=== PATIENT | male | born 1990 | race Two or more races ===

== ENCOUNTER 2017-06-08 19:04 | Emergency (ER) | payer MEDICAID ==
[~2017-06-08] VITALS: Ht 177.8 cm; Wt 93.0 kg
[2017-06-08] MEDS ORDERED: METOPROLOL SUCC25 MG ORAL (19:19)
[2017-06-08] MEDS ORDERED: OMEPRAZOLE20 M2 ORAL (19:19)
[2017-06-08] MEDS ORDERED: GABAPENTIN800 MG ORAL (19:19)
[2017-06-08] MEDS ORDERED: HYDROcodone/Acetamin 7.5/325 tab ORAL ONE (19:45)
[2017-06-08] MEDS ORDERED: Levalbuterol Inh UD 1.25mg/0.5ml HHN ONE (19:45)
[2017-06-08 20:22] LABS: BASOPHILS % (AUTO) 0.9 % (0.0-2.0); EOSINOPHILS % (AUTO) 5.4 % (0.0-3.0); HEMATOCRIT 42.1 % (42.0-52.0); LYMPHOCYTES % (AUTO) 31.1 % (20.0-45.0); MEAN CORPUSCULAR VOLUME 88 FL (80-99); MONOCYTES % (AUTO) 6.8 % (1.0-10.0); NEUTROPHILS % (AUTO) 55.9 % (45.0-75.0); PLATELET COUNT 371 K/UL (150-450); RED BLOOD COUNT 4.78 M/UL (4.70-6.10); RED CELL DISTRIBUTION WIDTH 12.7 % (11.6-14.8); WHITE BLOOD COUNT 9.3 K/UL (4.8-10.8)
[2017-06-08 20:31] LABS: ANION GAP 5 mmol/L (5-15); BLOOD UREA NITROGEN 9 mg/dL (7-18); CALCIUM 8.9 MG/DL (8.5-10.1); CARBON DIOXIDE 30 MMOL/L (21-32); CHLORIDE 104 MMOL/L (98-107); CREATININE 0.9 MG/DL (0.55-1.30); POTASSIUM 4.1 MMOL/L (3.5-5.1); SODIUM 139 MMOL/L (136-145)
[2017-06-08 20:35] LABS: ALANINE AMINOTRANSFERASE 98 U/L (12-78); ALBUMIN 3.6 G/DL (3.4-5.0); ALKALINE PHOSPHATASE 114 U/L (46-116); ASPARTATE AMINO TRANSFERASE 44 U/L (15-37); BILIRUBIN,TOTAL 0.2 MG/DL (0.2-1.0); CREATINE KINASE 255 U/L (26-308)
--- NOTE | 2017-06-08 21:12 | Emergency Room Report ---
History of Present Illness General Chief Complaint: Chest Pain Source: Patient Present Illness HPI 26-year-old male presents to the emergency department complaining of 7 on a 10 in severity chest pain and back pain since last night. Pt. also reports hx of chronic back pain and is experiencing symptoms consistent with prior symptoms. Reports wheezing and intermittent coughing. Denies fevers, chills, abdominal pain, nausea/vomiting. denies trauma or fall. Reports taking metoprolol for "hear rhythm" [place] Denies hx of [place] or CHF. denies lower extremity edema/swelling. Denies Palpitations, LOC, AMS, dizziness, Changes in Vision, Sensation, paresthesias, or a sudden severe headache. Allergies: Coded Allergies: IBUPROFEN (Verified Allergy, Mild, 06/08/17) PENICILLINS (Verified Allergy, Mild, 06/08/17) SULFA (SULFONAMIDE ANTIBIOTICS) (Verified Allergy, Mild, 06/08/17) TRAMADOL (Verified Allergy, Unknown, 06/08/17) Patient History Past Medical History: see triage record Past Surgical History: none Pertinent Family History: none Immunizations: UTD Reviewed Nursing Documentation: PMH: Agreed, PSxH: Agreed Nursing Documentation-PMH Hx Cardiac Problems: Yes Hx Gastrointestinal Problems: Yes - acid reflux Review of Systems All Other Systems: negative except mentioned in HPI Physical Exam Vital Signs Date Time Temp Pulse Resp B/P (MAP) Pulse Ox O2 Delivery O2 Flow Rate FiO2 06/08/17 19:10 98.1 108 15 134/82 95 Room Air 98.1 06/08/17 19:55 21 Sp02 EP Interpretation: reviewed, normal General Appearance: no apparent distress, alert, GCS 15, non-toxic Head: normocephalic, atraumatic Eyes: bilateral eye normal inspection, bilateral eye PERRL ENT: hearing grossly normal, normal voice Neck: full range of motion Respiratory: chest non-tender, speaking full sentences, wheezing Cardiovascular #1: regular rate, rhythm, no edema Gastrointestinal: normal bowel sounds, non tender, soft Rectal: deferred Genitourinary: normal inspection Musculoskeletal: back normal, gait/station normal, normal range of motion, non- tender Neurologic: alert, oriented x3, responsive, motor strength/tone normal, sensory intact, speech normal, grossly normal Psychiatric: judgement/insight normal Skin: normal color, no rash, warm/dry, well hydrated Lymphatic: no adenopathy Medical Decision Making PA Attestation Dr. Patel is my supervising Physician whom patient management has been discussed with. Diagnostic Impression: Primary Impression: Nonspecific chest pain Additional Impression: History of chronic back pain ER Course 26-year-old male presents to the emergency department complaining of 7 on a 10 in severity chest pain and back pain since last night. Pt. also reports hx of chronic back pain and is experiencing symptoms consistent with prior symptoms. Reports wheezing and intermittent coughing. Denies fevers, chills, abdominal pain, nausea/vomiting. denies trauma or fall. Reports taking metoprolol for "hear rhythm" [place]. Denies hx of TX or CHF. denies lower extremity edema/swelling. Denies Palpitations, LOC, AMS, dizziness, Changes in Vision, Sensation, paresthesias, or a sudden severe headache. Ddx considered but are not limited to TX, pneumonia, contusion, costochondritis , PE, ACS, Shoulder strain, Chest wall contusion. aortic dissection, arrhythmia. Vital signs: are WNL, pt. is afebrile H&PE are most consistent with nonspecific CP with abnormal EKG. -Hx of "cardiac rhythm " takes Metoprolol dx'd last year in [place] was seeing a Family Readiness Support Assistant. ORDERS: - EK BPM sinus tach with evidence of Jmfok-Eqagbmroh-Jtziz - no acute ST changes reviewed by Dr. Patel, this interpretation was scribed by FERDINAND Solis -CBC: unremarkable -CMP: unremarkable -Troponins: Negative 0.00 CXR: Unremarkable ED INTERVENTIONS: - PT. placed on cardiac monitoring. - Xopenex Nebs given- reassessment wheezes have resolved bilaterally DISCHARGE: At this time pt. is stable for d/c with close outpatient follow up with his Family Readiness Support Assistant and PCP. Will provide printed patient care instructions, and any necessary prescriptions. Care plan and follow up instructions have been discussed with the patient prior to discharge. Labs Test 06/08/17 19:30 06/08/17 19:45 White Blood Count 9.3 K/UL (4.8-10.8) Red Blood Count 4.78 M/UL (4.70-6.10) Hemoglobin 14.0 G/DL (14.2-18.0) Hematocrit 42.1 % (42.0-52.0) Mean Corpuscular Volume 88 FL (80-99) Mean Corpuscular Hemoglobin 29.2 PG (27.0-31.0) Mean Corpuscular Hemoglobin Concent 33.1 G/DL (32.0-36.0) Red Cell Distribution Width 12.7 % (11.6-14.8) Platelet Count 371 K/UL (150-450) Mean Platelet Volume 5.2 FL (6.5-10.1) Neutrophils (%) (Auto) 55.9 % (45.0-75.0) Lymphocytes (%) (Auto) 31.1 % (20.0-45.0) Monocytes (%) (Auto) 6.8 % (1.0-10.0) Eosinophils (%) (Auto) 5.4 % (0.0-3.0) Basophils (%) (Auto) 0.9 % (0.0-2.0) Sodium Level 139 MMOL/L (136-145) Potassium Level 4.1 MMOL/L (3.5-5.1) Chloride Level 104 MMOL/L (98-107) Carbon Dioxide Level 30 MMOL/L (21-32) Anion Gap 5 mmol/L (5-15) Blood Urea Nitrogen 9 mg/dL (7-18) Creatinine 0.9 MG/DL (0.55-1.30) Estimat Glomerular Filtration Rate > 60 mL/min (>60) Glucose Level 125 MG/DL (74-106) Calcium Level 8.9 MG/DL (8.5-10.1) Total Bilirubin 0.2 MG/DL (0.2-1.0) Aspartate Amino Transf (AST/SGOT) 44 U/L (15-37) Alanine Aminotransferase (ALT/SGPT) 98 U/L (12-78) Alkaline Phosphatase 114 U/L (46-116) Total Creatine Kinase 255 U/L (26-308) Troponin I 0.000 ng/mL (0.000-0.056) Total Protein 7.2 G/DL (6.4-8.2) Albumin 3.6 G/DL (3.4-5.0) Globulin 3.6 g/dL Albumin/Globulin Ratio 1.0 (1.0-2.7) Urine Opiates Screen Negative (NEGATIVE) Urine Barbiturates Screen Negative (NEGATIVE) Phencyclidine (PCP) Screen Negative (NEGATIVE) Urine Amphetamines Screen Negative (NEGATIVE) Urine Benzodiazepines Screen Negative (NEGATIVE) Urine Cocaine Screen Negative (NEGATIVE) Urine Marijuana (THC) Screen Negative (NEGATIVE) EKG Diagnostic Results EP Interpretation: Dr. Patel Rate: tachycardiac Rhythm: NSR ST Segments: no acute changes Other Impression WPW FERDINAND Scribdante Text - EK BPM sinus tach with evidence of Ethye-Kwavalgod-Sdbfx - no acute ST changes reviewed by Dr. Patel, this interpretation was scribed by FERDINAND Solis Chest X-Ray Diagnostic Results Chest X-Ray Diagnostic Results : Chest X-Ray Ordered: Yes # of Views/Limited/Complete: 1 View Indication: Chest Pain EP Interpretation: Yes FERDINAND Xray: Interpretation reviewed, by supervising MD, and agrees with findings. Interpretation: no consolidation, no effusion, no pneumothorax, no acute cardiopulmonary disease Impression: No acute disease Electronically Signed by: Alyce Solis PA-C Last Vital Signs Date Time Temp Pulse Resp B/P (MAP) Pulse Ox O2 Delivery O2 Flow Rate FiO2 06/08/17 21:04 98.1 06/08/17 20:04 99 18 99 Room Air 21 06/08/17 19:10 134/82 Disposition: HOME, SELF-CARE Condition: Stable Scripts Nebulizer (MINI PLUS NEBULIZER) 1 Each Each EACH , #1 Prov: Alyce Solis.A. 06/08/17 Albuterol Sulfate* (ALBUTEROL SULFATE HHN*) 2.5 Mg/3 Ml Vial.neb 3 ML INH Q6H Y for Shortness of Breath, #30 EA 0 Refills Prov: Alyce Solis P.A. 06/08/17 Albuterol Sulfate* (ALBUTEROL SULFATE MDI*) 8.5 Gm Hfa.aer.ad 2 PUFF INH Q6H, #1 INH 0 Refills Prov: Alyce Solis P.A. 06/08/17 Acetaminophen* (TYLENOL EXTRA STRENGTH*) 500 Mg Tablet 500 MG ORAL Q6H Y for Mild Pain/Temp > 100.5, #20 TAB 0 Refills Prov: Alyce Solis P.A. 06/08/17 Patient Instructions: Acute Bronchitis, Qxuu-kv-Wosj, Nonspecific Chest Pain, Jkaaa-Jslmbxqtg-Qezhu Syndrome Additional Instructions: Take medications as directed, and continue taking previously prescribed medications prescribed. Follow up with a Follow up with glass cutter hand within 3 days, even if your symptoms have resolved. -Also follow up with PCP for chronic pain management referral for chronic Low back pain. --Please review list of primary care clinics, if you do not already have a primary care provider Return sooner to ED if new symptoms occur, or current symptoms become worse. - Please note that this Emergency Department Report was dictated using [employer] stud framer technology software, occasionally this can lead to erroneous entry secondary to interpretation by the dictation equipment. Alyce Solis Jun 08, 2017 21:12
[2017-06-08] MEDS ORDERED: ALBUTEROL SULF8.5 GM INH (21:21)
[2017-06-08] MEDS ORDERED: TYLENOL EXTRA500 MG ORAL (21:21)
[2017-06-08] MEDS ORDERED: ALBUTEROL2.5 MG/3 M INH (21:21)
[2017-06-08] MEDS ORDERED: MINI PLUS NEBU1 EACH MC (21:21)
[2017-06-08 21:45] VITALS: BP 107/60
--- NOTE | 2017-06-09 11:21 | Diagnostic Imaging Report ---
Indication: Chest pain Comparison: None A single view chest radiograph was obtained. Findings: Cardiomediastinal appearance is within normal limits for age. Pulmonary vascularity is appropriate. The diaphragmatic contour is smooth and costophrenic angles are sharp. No pleural effusions are identified. The bones are unremarkable. Impression: No acute findings
--- NOTE | 2017-06-09 12:42 | Cardiology Report ---
APPROVED REPORT EKG Measurement Heart [id number] MI [id number] Sinus tachycardia Vtvzx-Nlyuutlcm-Huyrt Abnormal ECG
== END 2017-06-08 21:45 | disposition home or self-care (01) ==
LOC: EMR 19:32
DX: R07.89 Other chest pain (principal); M54.9 Dorsalgia, unspecified; G89.29 Other chronic pain; K21.9 Gastro-esophageal reflux disease without esophagitis; Z88.6 Allergy status to analgesic agent; Z88.2 Allergy status to sulfonamides; Z88.0 Allergy status to penicillin
CPT/HCPCS: 36415; 71045; 80053; 80307; 82550; 84484; 85025; 93005; 94640; 99284; J7644

== ENCOUNTER 2017-06-22 13:25 | Emergency (ER) | payer MEDICAID ==
[~2017-06-22] VITALS: Ht 177.8 cm; Wt 93.0 kg
[~2017-06-22 13:25] MED LIST: ALBUTEROL SULF8.5 GM INH; ALBUTEROL2.5 MG/3 M INH; GABAPENTIN800 MG ORAL; METOPROLOL SUCC25 MG ORAL; MINI PLUS NEBU1 EACH MC; OMEPRAZOLE20 M2 ORAL; TYLENOL EXTRA500 MG ORAL
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
[2017-06-22] MEDS ORDERED: TYLENOL EXTRA500 MG ORAL (13:58)
[2017-06-22 14:10] VITALS: BP 126/80
[2017-06-22 14:11] VITALS: BP 126/80
== END 2017-06-22 14:13 | disposition home or self-care (01) ==
LOC: EMR 14:11
DX: M54.5 Low back pain (principal); G89.29 Other chronic pain; Z91.19 Patient's noncompliance with other medical treatment and regimen; Z76.5 Malingerer [conscious simulation]; Z88.0 Allergy status to penicillin; Z88.2 Allergy status to sulfonamides; Z88.6 Allergy status to analgesic agent; K21.9 Gastro-esophageal reflux disease without esophagitis
CPT/HCPCS: 99284